=== PATIENT | female | born 1965 | race African-American/Black ===

== ENCOUNTER 2017-05-05 13:37 | Outpatient (CLI) | payer OTHER ==
[2017-05-05 14:57] LABS: Hematocrit 37.5 % (36.0-47.0); Mean Platelet Volume 7.8 fL (7.4-10.4); Red Blood Cell (RBC) Count 4.01 mill/uL (4.20-5.40); White Blood Cell (WBC) Count 5.3 thou/uL (4.8-10.8)
[2017-05-05 15:01] LABS: PTT 34.4 SEC (22.9-36.1); Prothrombin Time 13.8 SEC (12.0-14.7)
[2017-05-05 15:17] LABS: ALT (SGPT) 15 U/L (8-55); AST (SGOT) 16 U/L (5-34); Alkaline Phosphatase 60 U/L (40-150); Anion Gap 15 mmol/L (10-20); BUN (Urea Nitrogen) 14 mg/dL (7.0-18.7); Bilirubin, Total 0.6 mg/dL (0.2-1.2); Calc. Creatinine Clearance 0 mL/min (70-130); Calcium 9.5 mg/dL (7.8-10.44); Carbon Dioxide 21 mmol/L (22-29); Chloride 108 mmol/L (98-107); Estimated GFR-MDRD Greater than 90; Globulin 3.4 g/dL (2.4-3.5); Protein, Total 7.6 g/dL (6.0-8.3)
== END 2017-05-05 13:38 | disposition home or self-care (01) ==
LOC: LABBT 13:37
PROVIDERS: ATTEND Internal Medicine Cardiovascular Disease
DX: Z01.810 Encounter for preprocedural cardiovascular examination (principal); R07.9 Chest pain, unspecified
CPT/HCPCS: 80053; 85027; 85610; 85730; 93005; 93010

== ENCOUNTER 2017-05-17 06:14 | Day surgery (SDC) | payer OTHER ==
[2017-05-05 13:53] VITALS: BMI 33.8
[2017-05-17] MEDS ORDERED: Heparin 10,000 UNITS/1 ML VIAL ONE (07:50)
[2017-05-17] MEDS ORDERED: Nitroglycerin 100MG/250ML BOT 0 ML ONE (07:50)
[2017-05-17] MEDS ORDERED: Midazolam HCl 2 mg/2 ml Vial ONE (08:25)
[2017-05-17] MEDS ORDERED: Fentanyl 100 MCG/2 ML VIAL ONE (08:25)
[2017-05-17] MEDS ORDERED: Ondansetron HCl/PF 4 MG/2 ML Vial ONE (11:43)
[2017-05-17] MEDS ORDERED: Iopamidol 370 76% 100 ML VIAL ONE (15:53)
== END 2017-05-17 12:23 | disposition home or self-care (01) ==
LOC: CCL 06:14
PROVIDERS: ATTEND Internal Medicine Cardiovascular Disease
DX: I20.0 Unstable angina (principal); I10 Essential (primary) hypertension; J45.909 Unspecified asthma, uncomplicated; Z79.899 Other long term (current) drug therapy
CPT/HCPCS: 36415; 80061; 93458; 99152; C1760; C1769; J1644; J2250; J2405; J3010

== ENCOUNTER 2020-08-13 06:50 | Outpatient (CLI) | payer OTHER ==
[2020-08-13 16:06] LABS: Anion Gap 13 mmol/L (10-20); BUN (Urea Nitrogen) 13 mg/dL (9.8-20.1); Calc. Creatinine Clearance 0 mL/min (70-130); Calcium 9.6 mg/dL (7.8-10.44); Carbon Dioxide 28 mmol/L (22-29); Chloride 103 mmol/L (98-107); Glucose 87 mg/dL (70-105); Potassium 4.3 mmol/L (3.5-5.1); Sodium 140 mmol/L (136-145)
[2020-08-14 00:19] LABS: SARS-CoV-2 MS2 Positive; SARS-CoV-2 N Gene Negative; SARS-CoV-2 S Gene Negative; SARS-CoV-2 by NAA Not Detected (NotDetected); SARS-CoV-2 orf1ab Negative
== END 2020-08-13 06:51 | disposition home or self-care (01) ==
LOC: LABBT 06:50
PROVIDERS: ATTEND Surgery Surgery of the Hand
DX: Z01.818 Encounter for other preprocedural examination (principal); Z20.828 Contact with and (suspected) exposure to other viral communicable diseases; M65.311 Trigger thumb, right thumb; M65.4 Radial styloid tenosynovitis [de Quervain]
CPT/HCPCS: 80048; 87635; 93005; 93010; U0003

== ENCOUNTER 2020-08-18 10:43 | Day surgery (SDC) | payer OTHER ==
[2020-08-13 08:48] VITALS: BMI 34.2
[~2020-08-18 10:43] MED LIST: Ketorolac Tromethamine 30 MG/ML VIAL ONE; Metoclopramide HCl 10 MG/2 ML VIAL ONE; Ondansetron PF 4 MG/2 ML Vial ONE; PROPOFOL 200 MG/20 ML VIAL ONE
[2020-08-18] MEDS ORDERED: Bupivacaine 0.25% HCL 30 ML VIAL ONE (11:49)
[2020-08-18] MEDS ORDERED: Lidocaine 2% w/Epinephrine 1:200K 20 ML VIAL ONE (11:49)
[2020-08-18] MEDS ORDERED: Midazolam HCl 2 mg/2 ml Vial ONE (11:52)
[2020-08-18] MEDS ORDERED: Fentanyl 100 MCG/2 ML VIAL ONE (11:52)
[2020-08-18] MEDS ORDERED: Famotidine/PF 20 mg/2ml Vial ONE (11:52)
[2020-08-18] MEDS ORDERED: Nitroglycerin 2% Ointment 1 INCH/1 GM Packet ONE (12:07)
--- NOTE | 2020-08-18 13:48 | OP ---
DATE OF PROCEDURE: 08/18/2020 PREOPERATIVE DIAGNOSES: 1. Right trigger thumb. 2. Right wrist de Quervain tenosynovitis. POSTOPERATIVE DIAGNOSES: 1. Right trigger thumb. 2. Right wrist de Quervain tenosynovitis. PROCEDURES: 1. Right trigger thumb release. 2. Right wrist first dorsal compartment tendon release. [employer]: Please see operative record. ESTIMATED BLOOD LOSS: Less than 5 mL. TOURNIQUET TIME: None used. FINDINGS: Thickened and edematous A1 flako, right thumb with mild thickening of the tenosynovium overlying the flexor tendon which was gently debrided as well and there was thickening and edema appreciated at the first dorsal compartment retinaculum as well as the separate subsheath housing the EPB tendon, right wrist first dorsal compartment tendon. There was also thickening of the tenosynovium overlying the first dorsal compartment tendons, which was also gently debrided. ANESTHESIA: Local anesthetic and IV sedation. CONDITION: Stable. INDICATIONS: The patient is a 54-year-old female who presents for surgery today to have a right trigger thumb release and a right first dorsal compartment tendon release. Her symptoms are refractory to conservative treatments. All risks and goals associated with today's surgery were discussed and described by me to the patient and her . They voiced understanding and agreed to proceed. They agreed to proceed with surgery under local anesthetic with sedation in order to minimize any cardiovascular side effects due to the general anesthesia. The patient was given preoperative antibiotics. DESCRIPTION OF PROCEDURE: She was brought to the operating room and placed supine on the operating room table. Time-out was performed. Upper extremity tourniquet was applied. Alcohol was used to prep the skin overlying the first dorsal compartment tendons of the right wrist as well as the skin overlying the A1 flako of the right thumb and local anesthetic in the form of 2% lidocaine with epinephrine 1:200,000 parts was infiltrated in the skin in those areas. The right upper extremity was then prepped and draped under sterile aseptic conditions. A second time-out was performed. A pinch test was performed in the skin in the area of the predicted skin incision. She tolerated the pinch test well. After sedation was given, my attention was directed towards the right trigger thumb surgery first. I made an incision within the natural MP joint volar flexion crease of the right thumb using a 15-blade scalpel. Care was taken only to go skin deep and avoid injury to the underlying nerves, tendons, and blood vessels. Dissection was continued bluntly and carefully down to the A1 flako. The A1 flako was visualized after Collin retractors were used to facilitate exposure of the A1 flako and to also gently retract and protect the neurovascular digital bundles. The A1 flako appeared to be edematous. It was incised longitudinally and then full-thickness distally and proximally and completely using tenotomy scissors. There was some mild thickening of the tenosynovium overlying the flexor tendon and it was also gently debrided using tenotomy scissors. The thumb was passively ranged and there was no longer any locking or catching. The wound was irrigated thoroughly using sterile saline solution and the skin incision was primarily repaired using 4-0 nylon interrupted horizontal mattress sutures. My attention was then directed towards the first dorsal compartment tendon release in the right wrist. A transverse incision was made within a natural skin crease overlying the radial styloid region in the first dorsal compartment. Using a 15-blade scalpel, dissection was continued carefully and bluntly down to the extensor retinaculum. The radial sensory nerve branches were identified and protected at all times. The retinaculum was identified. It appeared to be edematous. It was longitudinally incised in full-thickness distally and proximally using a fresh 15-blade scalpel and tenotomy scissors. There was a separate subsheath housing the EPB tendon, which was also released from its subcompartment. There was some thickening of the tenosynovium overlying the first dorsal compartment tendons, which was also gently debrided. Good release was achieved. The wound was irrigated thoroughly and the skin incision was primarily repaired using 4-0 nylon interrupted horizontal mattress sutures. All fingers maintained good capillary refill throughout the entirety of the case, which was brisk and less than 2 seconds. Xeroform was applied over all wounds along with a bulky dressing, which was secured using an Lopez wrap. She was transferred back to the recovery area in stable condition, tolerated the procedure well. She was discharged home on Tylenol No. 3 with Codeine one to two tabs p.o. every 6 hours, 30 pills were prescribed p.r.n. for pain. I will see her back [facility] for a postoperative day #8 to 10 for suture removal and wound check. Job ID: [id number]
== END 2020-08-18 14:38 | disposition home or self-care (01) ==
LOC: SDC 10:43
PROVIDERS: ATTEND Surgery Surgery of the Hand
PROC: 0LN70ZZ Release Right Hand Tendon, Open Approach (ICD-10-PCS; principal; 2020-08-18)
PROC: 0LN50ZZ Release Right Lower Arm and Wrist Tendon, Open Approach (ICD-10-PCS; principal; 2020-08-18)
DX: M65.4 Radial styloid tenosynovitis [de Quervain] (principal); M65.311 Trigger thumb, right thumb; Z79.899 Other long term (current) drug therapy
CPT/HCPCS: 93005; 93010; J0690; J1885; J2250; J2405; J2704; J2765; J3010; S0020; S0028